=== PATIENT | male | born 1945 | race Caucasian/White ===

== ENCOUNTER → 2018-10-15 12:37 | Outpatient (CLI) | payer OTHER, SELFPAY ==
--- NOTE | 2018-10-15 12:44 | DI.US.S_ITS ---
PROCEDURE: US ABD AORTA ANEURYSM SCREEN INDICATIONS: Former smoker TECHNIQUE: Real time scanning was performed of the aorta and iliac arteries, with image documentation. COMPARISON: [facility], , ABD AORTA ANEURYSM SCREENING, 09/07/2015, 11:05. FINDINGS: Aorta: Proximal aortic diameter measures 2.9 cm (previously 2.1 cm on 09/07/2015). Mid-aorta measures 2.0 cm (previously 1.6 cm). Distal aortic diameter is 2.1 cm (previously 1.8 cm). Iliac arteries: Right common iliac artery measures 1.4 cm. Left common iliac artery measures 1.6 cm. IMPRESSION: No abdominal aortic aneurysm. The proximal abdominal aorta is ectatic measuring 2.9 cm in diameter and has increasing caliber since 09/07/2015. Recommend a 5 year followup ultrasound. Dictated by: Darling Estes M.D. on 10/15/2018 at 16:56 Approved by: Darling Estes M.D. on 10/15/2018 at 16:59
[2018-10-15 14:21] LABS: Hematocrit 38.8 % (41-53); Mean Corpuscular HGB Conc 33.6 % (30-36); Mean Corpuscular Hemoglobin 31.3 PG (26-34); Mean Corpuscular Volume 93.2 fL (80-100); Platelet Count 230 X10^3/uL (150-400); Red Blood Cell Count 4.16 X10^6/uL (4.5-5.9); Red Cell Distribution Width 13.9 % (11.6-14.8); White Blood Cell Count 8.5 X10^3/uL (4.5-11.0)
[2018-10-15 14:33] LABS: BUN Creatinine Ratio 28.6 (6-22); Blood Urea Nitrogen 20 mg/dL (9-20); Calcium 9.4 mg/dL (8.4-10.2); Carbon Dioxide 30 mmol/L (22-32); Chloride 99 mmol/L (98-107); Cholesterol 118 mg/dL (140-199); Estimated Glomerular Filt Rate > 60.0 mL/min (>60); Glucose 105 mg/dL (80-110); HDL Cholesterol 39 mg/dL (40-60); HEMOLYSIS < 15 (0-50); LDL Cholesterol Calculated 58 mg/dL (<100); Potassium 4.4 mmol/L (3.4-5.1); Sodium 141 mmol/L (137-145); Triglycerides 104 mg/dL (35-150)
[2018-10-15 15:45] LABS: Vitamin D 25 Hydroxy (D3) 35.1 ng/mL (30.0-100.0)
== END ==
PROVIDERS: PCP Student in an Organized Health Care Education/Training Program; Visit Provider Student in an Organized Health Care Education/Training Program
DX: Z13.6 Encounter for screening for cardiovascular disorders (principal); I77.811 Abdominal aortic ectasia; E55.9 Vitamin D deficiency, unspecified; E78.00 Pure hypercholesterolemia, unspecified; I10 Essential (primary) hypertension; D64.9 Anemia, unspecified; Z87.891 Personal history of nicotine dependence
CPT/HCPCS: 36415; 76706; 80048; 80061; 82306; 85027

== ENCOUNTER → 2018-11-05 10:08 | Outpatient (CLI) | payer OTHER, SELFPAY ==
--- NOTE | 2018-11-05 10:11 | DI.MRI.S_ITS ---
PROCEDURE: MR LUMBAR SPINE WO CON INDICATIONS: Sciatica and lumbar fx TECHNIQUE: Noncontrast sagittal T1 spin echo and T2 fast echo, sagittal STIR, axial T1 and T2 fast spin echo through the lumbar spine. In cases with scoliosis, additional coronal T2 fast spin echo may be performed. COMPARISON: [facility] [place], CR, XR LUMBAR SPINE 2 OR 3 VIEWS, 05/10/2018, 11:23. FINDINGS: Image quality: Excellent. Alignment and Curvature: There is grade 1 L5-S1 isthmic spondylolisthesis. Bone Marrow: Reactive endplate changes noted at L5-S1 disc. No acute vertebral body compression fractures. Spinal Cord: Conus medullaris terminates at the L1 level. Visualized cord demonstrates normal signal and size. Paraspinous Soft Tissues: No paravertebral masses. L1-L2: Loss of disc signal. Mild, diffuse disc bulge. Mild bilateral facet hypertrophy. Mild narrowing of the central canal. Mild bilateral neural foraminal narrowing. No neural impingement. L2-L3: Loss of disc signal. Mild bilateral facet hypertrophy. No central stenosis. No neural foraminal narrowing. No neural impingement. L3-L4: Loss of disc signal. Mild bilateral facet hypertrophy. No central stenosis. No neural foraminal narrowing. No neural impingement. L4-L5: Loss of disc signal. Mild to moderate diffuse disc bulge. Moderate bilateral facet hypertrophy. Mild narrowing of the central canal. Severe right and moderate left neural foraminal narrowing with flattening deformity the exiting right L4 nerve root. L5-S1: Loss of disc signal and height. Mild, diffuse disc bulge. Mild bilateral facet hypertrophy. No central stenosis. Severe bilateral neural foraminal narrowing with flattening deformity the exiting L5 nerve roots. IMPRESSION: 1. Multilevel degenerative disc disease. 2. Multilevel facet arthropathy. 3. Grade 1 L5-S1 isthmic spondylolisthesis. 3. Mild L1-L2 and L4-L5 central canal narrowing. 4. Severe bilateral L5-S1 neural foraminal narrowing. Severe right and moderate left L4-L5 neural foraminal narrowing. Mild bilateral L1-L2 neural foraminal narrowing. Dictated by: Abbie Hickman MD, PhD on 11/05/2018 at 13:01 Approved by: Abbie Hickman MD, PhD on 11/05/2018 at 13:20
== END ==
PROVIDERS: PCP Student in an Organized Health Care Education/Training Program; Visit Provider Student in an Organized Health Care Education/Training Program
DX: M51.16 Intervertebral disc disorders with radiculopathy, lumbar region (principal); M51.17 Intervertebral disc disorders with radiculopathy, lumbosacral region; M47.26 Other spondylosis with radiculopathy, lumbar region; M47.27 Other spondylosis with radiculopathy, lumbosacral region; M48.061 Spinal stenosis, lumbar region without neurogenic claudication; M48.07 Spinal stenosis, lumbosacral region; M43.17 Spondylolisthesis, lumbosacral region
CPT/HCPCS: 72148

== ENCOUNTER → 2019-02-09 10:48 | Outpatient (CLI) | payer OTHER, SELFPAY ==
[2019-02-09 12:33] LABS: INR 2.3 (0.9-1.3); Prothrombin Time 26.3 SECONDS (10.1-12.7)
== END ==
LOC: LAB 10:49
PROVIDERS: PCP Student in an Organized Health Care Education/Training Program; Visit Provider Student in an Organized Health Care Education/Training Program
DX: I48.91 Unspecified atrial fibrillation (principal); Z51.81 Encounter for therapeutic drug level monitoring; Z79.01 Long term (current) use of anticoagulants
CPT/HCPCS: 36415; 85610; 93005

== ENCOUNTER → 2019-05-13 14:01 | Outpatient (CLI) | payer OTHER, SELFPAY ==
[2019-05-13 15:00] LABS: B Type Natriuretic Peptide < 100 (<100)
[2019-05-13 16:00] LABS: INR 1.7 (0.9-1.3); Prothrombin Time 20.1 SECONDS (10.1-12.7)
[2019-05-13 16:02] LABS: Blood Urea Nitrogen 24 mg/dL (9-20); Calcium 10.1 mg/dL (8.4-10.2); Carbon Dioxide 29 mmol/L (22-32); Chloride 100 mmol/L (98-107); Estimated Glomerular Filt Rate > 60.0 mL/min (>60); Glucose 100 mg/dL (80-110); HEMOLYSIS < 15 (0-50); Potassium 3.9 mmol/L (3.4-5.1); Sodium 140 mmol/L (137-145)
== END ==
PROVIDERS: PCP Student in an Organized Health Care Education/Training Program; Visit Provider Student in an Organized Health Care Education/Training Program
DX: Z79.01 Long term (current) use of anticoagulants (principal); R60.0 Localized edema
CPT/HCPCS: 36415; 80048; 83880; 85610

== ENCOUNTER → 2019-10-19 13:20 | Outpatient (CLI) | payer MEDICARE, SELFPAY | PROVIDERS: PCP Student in an Organized Health Care Education/Training Program; Referring Provider Student in an Organized Health Care Education/Training Program; Visit Provider Family Medicine | DX: T24.231A Burn of second degree of right lower leg, initial encounter (principal); R60.0 Localized edema; Z79.01 Long term (current) use of anticoagulants | CPT/HCPCS: 16020; 99203; 99213 ==

== ENCOUNTER → 2019-10-19 15:46 | Outpatient (CLI) | payer MEDICARE, SELFPAY ==
--- NOTE | 2019-10-19 15:47 | DI.US.S_ITS ---
PROCEDURE: US PERIPH VENOUS LOW EXTREM RT INDICATIONS: LEG SWELLING, BULLOUS DERMATITIS TECHNIQUE: Real-time imaging, as well as color and pulse Doppler interrogation, were performed of the lower extremity deep veins from the inguinal ligament to the popliteal fossa. COMPARISON: None. FINDINGS: The common femoral, femoral and popliteal veins are normally compressible, and free of intraluminal thrombus. Color and pulse Doppler demonstrate normal phasic intraluminal flow. There is normal augmentation response to distal compression maneuver. This study is limited by body habitus. IMPRESSION: Negative for deep venous thrombosis. Dictated by: Steve Shultz M.D. on 10/19/2019 at 15:42 Approved by: Steve Shultz M.D. on 10/19/2019 at 15:42
== END ==
PROVIDERS: PCP Student in an Organized Health Care Education/Training Program; Referring Provider Student in an Organized Health Care Education/Training Program; Visit Provider Student in an Organized Health Care Education/Training Program
DX: M79.89 Other specified soft tissue disorders (principal); L13.9 Bullous disorder, unspecified
CPT/HCPCS: 93971

== ENCOUNTER → 2019-12-25 13:53 | Outpatient (CLI) | payer MEDICARE, SELFPAY ==
[2019-12-26 09:14] LABS: COVID19 Sendout NOT DETECTED (Not Detect)
== END ==
PROVIDERS: PCP Student in an Organized Health Care Education/Training Program; Visit Provider Physician Assistant
DX: Z01.818 Encounter for other preprocedural examination (principal)
CPT/HCPCS: 87635

== ENCOUNTER → 2020-03-19 07:30 | Outpatient (CLI) | payer MEDICARE, SELFPAY ==
--- NOTE | 2020-03-19 | DI.ECHO.S_ITS ---
[facility]---------+ [facility] +---------+ : : [address] [place] : : : : [id number] : : : : Phone: [phone]---------+ Echocardiogram Report + + :Name: PEPE DANIEL Study Date: 03/19/2020 Height: 72 in : :[facility] Weight: 365 lb : : Gender: Male BSA: 2.8 m2 : :: 1945 Age: 74 yrs BP: 174/94 mmHg: :Reason For Study: Hypertension : :Ordering Physician: Agus Corneliusformed By: Aviva Winkler : + + Interpretation Summary Left ventricular wall thickness is mild-moderately increased. The left ventricular ejection fraction is normal. There are no focal wall motion abnormalities. Diastolic parameters suggest a relaxation abnormality of the left ventricle, consistent with probable normal filling pressures. The right ventricle is at the upper limits of normal in size. The right ventricular systolic function is normal. Pulmonary artery pressures cannot be estimated because of the lack of a measurable TR jet velocity but the IVC suggests a CVP of around 3 mmHg. There is moderate aortic stenosis. The peak aortic velocity is 3.15 m/sec. The previous echo was not available for comparison. Procedure: A two-dimensional transthoracic echocardiogram with color flow and Doppler was performed. The study quality was technically adequate. Comparison is made with the echocardiogram of 03/06/2017. The patient was in a bradycardic rhythm during the exam. The heart rate ranged between 45-52 bpm during the study. Left Ventricle: The left ventricle is normal in size. Left ventricular wall thickness is mild-moderately increased. The ejection fraction is estimated to be 60-65%. The left ventricular ejection fraction is normal. There are no focal wall motion abnormalities. Diastolic parameters suggest a relaxation abnormality of the left ventricle, consistent with probable normal filling pressures. Right Ventricle: The right ventricle is at the upper limits of normal in size. The right ventricular systolic function is normal. Atria: The left atrium is moderately dilated. Right atrial size is normal. There is no Doppler evidence for an interatrial shunt. Mitral Valve: The mitral valve is normal in structure and function. There is trace mitral regurgitation. Aortic Valve: The aortic valve is moderately calcified. There is moderately reduced leaflet mobility. The right coronary cusp mobility is specially reduced. There is moderate aortic stenosis. The peak aortic velocity is 3.15 m/sec. The aortic valve mean gradient is 23 mmHg. No aortic regurgitation is present. Tricuspid Valve: The tricuspid valve is normal in structure and function. Pulmonary artery pressures cannot be estimated because of the lack of a measurable TR jet velocity but the IVC suggests a CVP of around 3 mmHg. There is a trace or physiologic amount of tricuspid regurgitation. Pulmonic Valve: The pulmonic valve is not well visualized. The pulmonic valve is not well seen, but is grossly normal. There is no pulmonic valvular regurgitation. Great Vessels: The aortic root is normal size. The ascending aorta is normal in size. The IVC is of normal diameter and collapses greater than 50% with a sniff. This suggests a low right atrial pressure of 3 mm Hg. Pericardium/ Pleura There is no pericardial effusion. There is no pleural effusion. MMode/2D Measurements & Calculations LVIDd: 4.9 cm LVOT diam: 2.5 cm LVIDs: 3.4 cm Ao root diam: 3.8 cm FS: 29.9 % asc Aorta Diam: 3.3 cm EPSS: 1.5 cm Ao Arch Diam (Prox Trans): 3.2 cm IVSd: 1.4 cm LVPWd: 1.4 cm LV de luna. diameter/BSA (cm/m^2): 1.8 LV sys. diameter/BSA (cm/m^2): 1.2 LA A2 area: 34.8 cm2 RA long axis: 5.5 cm LA A4 area: 20.2 cm2 RA area: 17.0 cm2 LA length (vol): 5.3 cm RA vol: 44.5 ml LA vol: 112.5 ml RA : 16.2 ml/m2 LA vol index: 40.9 ml/m2 IVC diam: 1.7 cm RVD1 (basal): 4.2 cm TAPSE: 2.3 cm Doppler Measurements & Calculations Ao V2 max: 320.4 cm/sec LVOT Max Mendoza: 109.9 cm/sec Ao V2 mean: 230.3 cm/sec LV V1 max P.8 mmHg Ao max P.1 mmHg LV V1 VTI: 29.0 cm Ao mean P.5 mmHg SHREYA(I,D): 1.5 cm2 Ao V2 VTI: 95.5 cm SHREYA(V,D): 1.7 cm2 sev ratio: 0.30 SHREYA indexed to BSA (cm^2/m^2): 0.53 MV E max mendoza: 72.5 cm/sec PA V2 max: 87.9 cm/sec MV A max mendoza: 81.6 cm/sec PA V2 mean: 57.3 cm/sec MV E/A: 0.89 PA mean P.5 mmHg Med Peak E' Mendoza: 5.6 cm/sec PA pr(Accel): 37.9 mmHg E/E' med: 12.8 Lat Peak E' Mendoza: 7.4 cm/sec E/E' lat: 9.8 E/e' average: 11.3 MV dec time: 0.38 sec SV(LVOT): 140.2 ml Electronically signed by: Wilian Rawls M.D. on Reading Physician:03/19/2020 07:26 PM
== END ==
PROVIDERS: PCP Student in an Organized Health Care Education/Training Program; Referring Provider Physician Assistant; Visit Provider Physician Assistant
DX: I35.0 Nonrheumatic aortic (valve) stenosis (principal); I10 Essential (primary) hypertension
CPT/HCPCS: 93306

== ENCOUNTER → 2020-09-05 11:59 | Outpatient (CLI) | payer MEDICARE, SELFPAY ==
--- NOTE | 2020-09-05 12:00 | DI.RAD.S_ITS ---
PROCEDURE: XR CHEST 2V INDICATIONS: Shortness of breath; recovering PNA TECHNIQUE: 2 views of the chest were acquired. COMPARISON: [facility], , CHEST 1 VIEW, 09/28/2016, 2:40. FINDINGS: Surgical changes and devices: None. Lungs and pleura: Lungs are clear. No pleural effusions or pneumothorax. Mediastinum: Mediastinal contours are normal. Heart size is normal. Bones and chest wall: No suspicious bony abnormalities. Soft tissues appear unremarkable. IMPRESSION: No acute cardiopulmonary disease process. Dictated by: Abbie Hickman MD, PhD on 09/05/2020 at 17:25 Approved by: Abbie Hickman MD, PhD on 09/05/2020 at 17:26
== END ==
PROVIDERS: PCP Student in an Organized Health Care Education/Training Program; Referring Provider Student in an Organized Health Care Education/Training Program; Visit Provider Student in an Organized Health Care Education/Training Program
DX: R06.02 Shortness of breath (principal)
CPT/HCPCS: 71046

== ENCOUNTER → 2021-04-03 14:14 | Outpatient (CLI) | payer MEDICARE, SELFPAY ==
[2021-04-03 15:02] LABS: Influenza A - CEPHEID Flu A NEGATIVE (NEGATIVE); Influenza B - CEPHEID Flu B NEGATIVE (NEGATIVE)
[2021-04-03 15:06] LABS: COVID-19 CEPHEID PCR (VTM/NP) Negative (Negative)
== END ==
PROVIDERS: PCP Student in an Organized Health Care Education/Training Program; Visit Provider Student in an Organized Health Care Education/Training Program
DX: Z20.822 Contact with and (suspected) exposure to COVID-19 (principal); R05 Cough; R09.89 Other specified symptoms and signs involving the circulatory and respiratory systems
CPT/HCPCS: 87502; U0003

== ENCOUNTER → 2021-12-23 11:34 | Outpatient (CLI) | payer MEDICARE, SELFPAY ==
--- NOTE | 2021-12-23 11:35 | DI.ECHO.S_ITS ---
[facility] +---------+ [facility] +---------+ : : [address] [place] : : : : [id number] : : : : Phone: [phone]---------+ Echocardiogram Report + + :Name: PEPE DANIEL Study Date: 12/23/2021 Height: 72 in : :[facility] ReadingLocation: Weight: 360 lb : : Gender: Male BSA: 2.7 m2 : :: 1945 Age: 76 yrs BP: 151/73 mmHg: :Reason For Study: PRE-SYNCOPE, AORTIC STENOSIS : :Ordering Physician: CAROLINE, : :DANDRE Performed By: Aviva Winkler : :Referring: DANDRE VELAZQUEZ : + + Interpretation Summary Sinus bradycardia. Heart rate is 49-55 bpm during the exam. Normal LV size with mild concentric left ventricular hypertrophy. Normal wall motion and left ventricular systolic function. Ejection fraction is 65-70%. Stage I diastolic dysfunction. Mildly dilated left atrium. Mild mitral annular calcification. Aortic valve is a trileaflet structure with moderately thickened and calcified leaflets characterized by moderately reduced leaflet excursion. Peak velocity is 3.7 m/s and mean gradient is 33 mmHg consistent with moderate aortic stenosis. Mildly dilated ascending aorta measuring 3.9 cm. Compared to prior echocardiogram dated November 18, 2019, peak velocity of the aortic valve got worse. Peak velocity anthony from 3.2 m/s to 3.7 m/s. Mean gradient anthony to 33 mmHg from 24 mmHg. Procedure: A two-dimensional transthoracic echocardiogram with color flow and Doppler was performed. The study quality was technically adequate. Comparison is made with the echocardiogram of 03/19/2020. The patient was in sinus rhythm with heart rates between 46-78 bpm during the exam. Left Ventricle: The left ventricle is normal in size and wall thickness. The ejection fraction is estimated to be 60-65%. Right Ventricle: The right ventricle is mildly dilated. The right ventricular systolic function is normal. Atria: The left atrium is severely dilated. Right atrial size is normal. There is no Doppler evidence for an interatrial shunt. Mitral Valve: There is mild mitral annular calcification. The mitral valve is normal in structure and function. There is trace mitral regurgitation. Aortic Valve: The aortic valve is moderately calcified. There is discrete nodular thickening of the right coronary cusp. The aortic valve is trileaflet. There is moderate aortic stenosis. The peak aortic velocity is 3.7 m/sec. The aortic valve mean gradient is 33 mmHg. There is mild aortic regurgitation. Tricuspid Valve: The tricuspid valve is normal in structure and function. There is trace tricuspid regurgitation. Pulmonic Valve: The pulmonic valve is not well seen, but is grossly normal. There is trace pulmonic regurgitation. Great Vessels: The aortic root is normal size. The dimensions of the ascending aorta are normal. The IVC is of normal diameter and collapses greater than 50% with a sniff. This suggests a low right atrial pressure of 3 mm Hg. Pericardium/ Pleura There is no pericardial effusion. There is no pleural effusion. MMode/2D Measurements & Calculations LVIDd: 4.9 cm LVOT diam: 2.5 cm LVIDs: 3.2 cm Ao root diam: 3.9 cm FS: 35.5 % asc Aorta Diam: 3.2 cm IVSd: 1.0 cm Ao Arch Diam (Prox Trans): 3.3 cm LVPWd: 1.1 cm LV de luna. diameter/BSA (cm/m^2): 1.8 LV sys. diameter/BSA (cm/m^2): 1.2 LA A2 area: 35.7 cm2 RA long axis: 5.2 cm LA A4 area: 28.9 cm2 RA area: 17.9 cm2 LA length (vol): 6.6 cm RA vol: 52.3 ml LA vol: 132.3 ml RA : 19.1 ml/m2 LA vol index: 48.4 ml/m2 IVC diam: 1.9 cm RVD1 (basal): 4.4 cm TAPSE: 2.6 cm Doppler Measurements & Calculations Ao V2 max: 371.5 cm/sec LVOT Max Mendoza: 114.9 cm/sec Ao V2 mean: 266.5 cm/sec LV V1 max P.3 mmHg Ao max P.6 mmHg LV V1 VTI: 34.0 cm Ao mean P.7 mmHg SHREYA(I,D): 1.7 cm2 Ao V2 VTI: 101.0 cm SHREYA(V,D): 1.5 cm2 sev ratio: 0.34 SHREYA indexed to BSA (cm^2/m^2): 0.60 MV E max mendoza: 84.8 cm/sec TR max mendoza: 200.2 cm/sec MV A max mendoza: 87.9 cm/sec TR max P.0 mmHg MV E/A: 0.96 Med Peak E' Mendoza: 6.1 cm/sec E/E' med: 13.8 Lat Peak E' Mendoza: 6.8 cm/sec E/E' lat: 12.4 E/e' average: 13.1 MV dec time: 0.32 sec SV(OT): 166.7 ml Electronically signed by: Evangelina Vargas M.D. on Reading Physician:12/24/2021 02:59 PM
== END ==
LOC: ECHO 11:34
PROVIDERS: PCP Student in an Organized Health Care Education/Training Program; Referring Provider Student in an Organized Health Care Education/Training Program; Visit Provider Student in an Organized Health Care Education/Training Program
DX: I35.2 Nonrheumatic aortic (valve) stenosis with insufficiency (principal); R55 Syncope and collapse
CPT/HCPCS: 93306

== ENCOUNTER → 2022-12-05 14:40 | Outpatient (CLI) | payer MEDICARE, SELFPAY ==
[2022-12-05 17:33] LABS: Appearance Urine UA CLEAR; Bilirubin Urine UA NEGATIVE (NEGATIVE); Color Urine UA YELLOW; Glucose Urine UA NEGATIVE (Negative); Ketones Urine UA NEGATIVE (NEGATIVE); Leukocyte Esterase Urine UA TRACE (NEGATIVE); Nitrite Urine UA POSITIVE (Negative); Occult Blood Urine UA TRACE-INTACT (Negative); Protein Urine UA NEGATIVE (Negative); Specific Gravity Urine UA 1.015 (1.000-1.035)
[2022-12-05 18:03] LABS: Bacteria Urine Many (>30); RBC Urine 5-10/HPF (0-5/HPF); Squamous Epithelial Cell Urine 1-5 /HPF (0-5/HPF); WBC Urine 10-30/HPF (0-5/HPF)
[2022-12-05 18:05] LABS: Culture Indicated Urine Specimen Cultured
== END ==
PROVIDERS: PCP Student in an Organized Health Care Education/Training Program; Referring Provider Student in an Organized Health Care Education/Training Program; Visit Provider Student in an Organized Health Care Education/Training Program
DX: R30.0 Dysuria (principal)
CPT/HCPCS: 81001

== ENCOUNTER → 2022-12-23 13:43 | Outpatient (CLI) | payer MEDICARE, SELFPAY ==
[2022-12-23 14:00] LABS: Appearance Urine UA CLEAR; Bilirubin Urine UA NEGATIVE (NEGATIVE); Color Urine UA YELLOW; Glucose Urine UA NEGATIVE (Negative); Ketones Urine UA NEGATIVE (NEGATIVE); Leukocyte Esterase Urine UA 1+ (NEGATIVE); Nitrite Urine UA POSITIVE (Negative); Occult Blood Urine UA NEGATIVE (Negative); Protein Urine UA NEGATIVE (Negative); Urobilinogen Urine UA 0.2 E.U./dL (0.2); pH Urine UA 5.5 (4.5-8.0)
[2022-12-23 14:22] LABS: Bacteria Urine Many (>30); Culture Indicated Urine Specimen Cultured; RBC Urine None Seen (0-5/HPF); Squamous Epithelial Cell Urine None Seen (0-5/HPF); WBC Urine 1-5/HPF (0-5/HPF)
== END ==
PROVIDERS: PCP Student in an Organized Health Care Education/Training Program; Referring Provider Internal Medicine; Visit Provider Internal Medicine
DX: N40.1 Benign prostatic hyperplasia with lower urinary tract symptoms (principal)
CPT/HCPCS: 81001; 87077; 87086; 87186